=== PATIENT | female | born 1980 | race Caucasian/White ===

== ENCOUNTER 2022-05-09 10:35 | Emergency (ER) | payer OTHER ==
[~2022-05-09] VITALS: Ht 157.5 cm; Wt 97.5 kg
[2022-05-09] MEDS ORDERED: INSULIN SYRING1 EA28 (10:44)
== END 2022-05-09 15:15 | disposition home or self-care (01) ==
LOC: ER 10:35
DX: S80.211A Abrasion, right knee, initial encounter (principal); W19.XXXA Unspecified fall, initial encounter; Y93.89 Activity, other specified; Y92.89 Other specified places as the place of occurrence of the external cause; Z88.0 Allergy status to penicillin